=== PATIENT | male | born 1950 | race Caucasian/White ===

== ENCOUNTER 2021-09-16 12:24 | Emergency (ER) | payer MEDICARE, OTHER ==
[~2021-09-16] VITALS: Ht 175.3 cm; Wt 77.3 kg
[2021-09-16] MEDS ORDERED: PERTUSS(ACELL),DIPH,TET VAC/PF 0.5 ML SYRINGE IM. ONE (12:30)
[2021-09-16] MEDS ORDERED: SODIUM CHLORIDE 0.9% 250 ML IRRIG SOLUTION BOTTLE IRRIG ONE (12:30)
[2021-09-16 12:44] VITALS: BP 149/96
[2021-09-16] MEDS ORDERED: ACETAMINOPHEN 500 MG TABLET PO ONE (13:15)
== END 2021-09-16 13:34 | disposition home or self-care (01) ==
LOC: EMS 12:31
DX: S60.222A Contusion of left hand, initial encounter (principal); S60.512A Abrasion of left hand, initial encounter; S00.83XA Contusion of other part of head, initial encounter; R60.0 Localized edema; I10 Essential (primary) hypertension; W01.198A Fall on same level from slipping, tripping and stumbling with subsequent striking against other object, initial encounter; Y93.89 Activity, other specified; Y92.89 Other specified places as the place of occurrence of the external cause; Y99.8 Other external cause status
CPT/HCPCS: 90471; 90715; 99283

== ENCOUNTER 2024-12-15 03:16 | Emergency (ER) | payer MEDICARE, OTHER ==
[~2024-12-15] VITALS: Ht 175.3 cm; Wt 68.2 kg
[~2024-12-15 03:16] MED LIST: AMLO-257 PO; CEPH-558 PO; SULF-261 PO
[2024-12-15 03:28] VITALS: BP 147/91; PULSE 113; RESP 12; TEMP 97.7; O2SAT 96
[2024-12-15] MEDS: SODIUM CHLORIDE 0.9% 1,000 ML IV ONE (04:28)
[2024-12-15 05:18] LABS: PLATELET COUNT (AUTO) 206 K/uL (150-450); RED BLOOD CELL COUNT(AUTO) 4.55 MIL/uL (4.50-5.90); RED CELL DISTRIBUTION WIDTH 14.4 % (11.5-14.5); WHITE BLOOD COUNT (AUTO) 10.5 K/uL (4.5-11.0)
[2024-12-15 05:20] LABS: CALCIUM, TOTAL 8.4 mg/dL (8.8-10.5); CREATININE 2.29 mg/dL (0.60-1.30); GLOMERULAR FILTR. RATE CALC 28.0 mL/min (>60); GLUCOSE,RANDOM 135.0 mg/dL (70-110); SODIUM SERUM 145.0 mmol/L (136-145); UREA NITROGEN, BLOOD 25.0 mg/dL (7-18)
[2024-12-15 05:29] LABS: LACTIC ACID 1.2 mmol/L (0.4-2.0)
[2024-12-15] MEDS: POTASSIUM CHLORIDE 20 MEQ ER TABLET PO ONE (05:47)
[2024-12-15] MEDS: CEPHALEXIN MONOHYDRATE 500 MG CAPSULE PO ONE (05:47)
[2024-12-15 05:57] LABS: APPEARANCE,URINE HAZY (CLEAR); GLUCOSE, URINE (UA) NEGATIVE (NEGATIVE); LEUKOCYTE ESTERASE ,URINE LARGE (NEGATIVE); NITRATE,URINE NEGATIVE (NEGATIVE); OCCULT BLOOD,URINE SMALL (NEGATIVE); SPECIFIC GRAVITIY, URINE 1.012 (1.003-1.030)
[2024-12-15] MEDS ORDERED: CEPH-558 PO (06:18)
[2024-12-15 06:27] LABS: SQUAMOUS EPITHELIAL CELL,UR Few /LPF (None Seen)
== END 2024-12-15 06:41 | disposition home or self-care (01) ==
LOC: EMS 03:16
DX: Z46.6 Encounter for fitting and adjustment of urinary device (principal); I10 Essential (primary) hypertension; Z79.899 Other long term (current) drug therapy; Z91.012 Allergy to eggs; Z91.018 Allergy to other foods
CPT/HCPCS: 99283; 96360; 96361; 80048; 81001; 83605; 85025; 87077; 87086; 36415; 51702; J7030; 87186